=== PATIENT | male | born 1930 | race Caucasian/White ===

== ENCOUNTER 2017-08-29 17:44 | Emergency (ER) | payer MEDICARE ==
--- NOTE | 2017-08-29 18:59 | RAD ---
SACRUM AND COCCYX: 08/29/17 HISTORY: Trauma. Fall. Pain. COMPARISON: None. FINDINGS: Sacral ala appear to be preserved. No obvious fractures. There is diffuse bone demineralization. IMPRESSION: No definite fracture. POS: [facility]
== END 2017-08-29 20:57 | disposition home or self-care (01) ==
LOC: ERS 17:44
DX: K29.70 Gastritis, unspecified, without bleeding (principal); F41.9 Anxiety disorder, unspecified
CPT/HCPCS: 72220

== ENCOUNTER 2018-04-19 11:16 | Inpatient (IN) | payer MEDICARE ==
[~2018-04-19 11:16] MED LIST: Iopamidol 370 76% 100 ML VIAL ONE; Iopamidol 370 76% 50 ML VIAL FS ONE
[2018-04-19 11:41] LABS: #Basophils 0.1 thou/uL (0.0-0.2); #Eosinphils 0.1 thou/uL (0.0-0.7); #Lymphocytes 2.7 thou/uL (1.20-3.40); #Monocytes 0.7 thou/uL (0.11-0.59); #Neutrophils 3.6 thou/uL (1.40-6.50); %Basophils 0.8 % (0.0-1.0); %Lymphocytes 38.3 % (21.0-51.0); %Monocytes 9.6 % (0.0-10.0); %Neutrophils 50.3 % (42.0-75.0); Hemoglobin 12.9 g/dL (14.0-18.0); Mean Corpuscular HGB CONC 33.8 g/dL (32.0-36.0); Mean Corpuscular Hemoglobin 30.7 pg (27.0-31.0); Mean Corpuscular Volume 90.9 fL (78.0-98.0); Mean Platelet Volume 8.1 fL (7.4-10.4); Platelet Count 154 thou/uL (130-400); Red Blood Cell (RBC) Count 4.22 mill/uL (4.70-6.10); White Blood Cell (WBC) Count 7.1 thou/uL (4.8-10.8)
[2018-04-19] MEDS ORDERED: DOPamine 400 MG/D5W 250 ML 250 ML ONE (11:45)
[2018-04-19] MEDS ORDERED: Amiodarone 150 MG/3 ML VIAL ONE ×2 (11:47→11:50)
[2018-04-19 11:52] LABS: INR-International Normal Ratio 1.8; PTT 31.9 SEC (22.9-36.1); Prothrombin Time 21.3 SEC (12.0-14.7)
[2018-04-19 11:55] LABS: ALT (SGPT) 45 U/L (8-55); AST (SGOT) 62 U/L (5-34); Albumin 3.8 g/dL (3.4-4.8); Alkaline Phosphatase 92 U/L (40-150); Anion Gap 15 mmol/L (10-20); BUN (Urea Nitrogen) 19 mg/dL (8.4-25.7); Calc. Creatinine Clearance 0 mL/min (70-130); Calcium 9.3 mg/dL (7.8-10.44); Carbon Dioxide 26 mmol/L (23-31); Chloride 102 mmol/L (98-107); Estimated GFR-MDRD 56; Globulin 2.9 g/dL (2.4-3.5); Glucose 151 mg/dL (83-110); Potassium 3.6 mmol/L (3.5-5.1); Protein, Total 6.7 g/dL (5.8-8.1); Sodium 139 mmol/L (136-145)
[2018-04-19] MEDS ORDERED: Norepinephrine 4 MG/4 ML VIAL ONE (11:55)
[2018-04-19 11:59] LABS: CKMB 5.7 ng/mL (0-6.6); Troponin I Less than 0.010 ng/mL (< 0.028)
[2018-04-19] MEDS ORDERED: Heparin 10,000 UNITS/1 ML VIAL ONE (12:00)
[2018-04-19] MEDS ORDERED: Ondansetron PF 4 MG/2 ML Vial ONE (12:01)
[2018-04-19] MEDS ORDERED: Atropine Sulfate 1 mg/10 ml Syringe ONE (12:08)
[2018-04-19] MEDS ORDERED: Nitroglycerin 0.4 MG TAB (25 Tab Bottle) SL PRN (13:07)
[2018-04-19] MEDS ORDERED: Morphine 4 MG/ML VIAL SLOW IVP PRN (13:07)
[2018-04-19] MEDS ORDERED: Aggrastat 12.5 MG/250 ML 250 ML ONE (13:09)
[2018-04-19] MEDS ORDERED: Aggrastat 12.5 MG/250 ML 250 ML IVPB SCH (13:15)
[2018-04-19] MEDS ORDERED: Norepinephrine 8 MG/0.9% NS 250 ML IVPB SCH (13:15)
[2018-04-19] MEDS ORDERED: TICAGRELOR 90 MG TABLET PO SCH (13:15)
[2018-04-19] MEDS ORDERED: DOPamine 400 MG/D5W 250 ML 250 ML IVPB SCH (13:15)
[2018-04-19] MEDS ORDERED: Amiodarone In Dextrose 200 ML IVPB SCH (13:15)
--- NOTE | 2018-04-19 14:00 | HP ---
REASON FOR ADMISSION: Acute inferior ST-elevation [place]. HISTORY OF PRESENT ILLNESS: Mr. Peoples is a pleasant 88-year-old white gentleman, who comes to the hospital, brought in by EMS for a fall. At his [facility] room, he was sitting on the wheelchair and then when they came back in the room, he was on the floor, so EMS was called. He was complaining of neck pain, so a neck brace was placed. He was brought in and on the way in the ambulance, an EKG was done that showed that he was bradycardic in the 40s and had inferior ST elevations. Cardiology was called for this. I spoke with the son and they wanted to rescind the DNR for a possible heart catheterization and try to do as much as we could without being too aggressive in the sense of doing a bypass surgery. He was taken to the catheterization lab, where he was found to have an occluded RCA. He had several runs of thrombectomy and balloon angioplasty and eventually, we were able to restore flow and his complete heart block actually recovered back to normal rhythm. He is currently in sinus tach. He did have several episodes of ventricular tachycardia. The first three episodes were related to putting a temporary pacemaker on his RV. The pacer started pacing him appropriately, but he went into VT soon after, so this was eventually pulled out and his VT improved. He had already received amiodarone at that time. After we had opened up the artery, he also had two more episodes of VT, which he got defibrillated from. He tolerated the procedure well. He is on Aggrastat and on two different pressors to keep his blood pressure up. PAST MEDICAL HISTORY: 1. Chronic atrial fibrillation, however, currently in sinus rhythm. 2. Venous insufficiency. 3. History of left great toe cellulitis. 4. Depression. PAST SURGICAL HISTORY: 1. Left toe abscess incision and drainage back in 2013. 2. Colonoscopy. 3. Appendectomy. 4. Tonsillectomy. 5. Adenoidectomy. 6. Vein ablation for varicose disease and venous insufficiency. OUTPATIENT MEDICATIONS: Aspirin 325 a day. He has been on Coumadin in the past, but apparently, he has been taken off this medication as he is noncompliant. FAMILY HISTORY: No early coronary artery disease. SOCIAL HISTORY: He is demented and lives in a [facility]. No drugs. No tobacco. He have about 2 to 3 beers a day. REVIEW OF SYSTEMS: Unobtainable as the patient is confused. PHYSICAL EXAMINATION: VITAL SIGNS: Blood pressure 110/62, heart rate of 80, respiratory rate 20, and saturating 92% on non-rebreather. GENERAL: Awake, alert, and oriented to person and place only. HEENT: Normocephalic and atraumatic. NECK: Cleared by the ER. LUNGS: Clear to auscultation. CARDIOVASCULAR: S1 and S2. No S3 or S4. No murmurs. ABDOMEN: Soft. Positive bowel sounds. EXTREMITIES: No edema. SKIN: Warm and dry. LABORATORY WORK: Reviewed. CBC with a white count of 7.1, hemoglobin 12.9, hematocrit 38, blood count 154. Coags were reviewed. Chemistries were reviewed, unremarkable except for glucose of 151. BNP was 403. Troponin I was less than 0.01 and CK-MB was normal. ASSESSMENT: 1. Acute inferior ST-elevation myocardial infarction. 2. Third-degree AV block, resolved after opening up the RCA. 3. Dementia with mild altered mentation improved now once he is out of complete heart block. 4. Cardiogenic shock, currently on Levophed and dopamine, to be weaned off. PLAN: 1. Admit to ICU. 2. Continue to wean dopamine and Levophed as tolerated. 3. He will have to remain flat for the next 12 hours as there is a lot of clot burden in his coronaries. We will keep him on Aggrastat for 12 hours. We can pull the sheath about an hour after the Aggrastat has been stopped. 4. Continue amiodarone drip secondary to several episodes of VT during catheterization. We will probably stop it before discharge. 5. Lovenox for DVT prophylaxis. 6. PPI for stress ulcer prophylaxis. 7. Family has rescinded DNR for the next few days in the perioperative state. We will most likely resume DNR in the next two days. Job ID: [id number]
[2018-04-19 16:13] VITALS: BMI 31.9
[2018-04-19] MEDS ORDERED: Sodium Chloride 0.9% 1,000 ML IV SCH (17:00)
[2018-04-19] MEDS: Amiodarone HCl 450 MG in Dextrose 5% in Water 250 ML IVPB SCH (18:03)
--- NOTE | 2018-04-19 18:18 | RAD ---
AP CHEST: 04/19/18 HISTORY: Chest pain. Lungs appear clear of infiltrate. No evidence of vascular congestion. Heart and mediastinum unremarka ble. IMPRESSION: No acute process. POS: [facility]
[2018-04-19 19:48] LABS: #Lymphocytes 0.7 thou/uL (1.20-3.40); #Monocytes 0.8 thou/uL (0.11-0.59); #Neutrophils 10.3 thou/uL (1.40-6.50); %Eosinophils 0.2 % (0.0-10.0); %Lymphocytes 6.2 % (21.0-51.0); %Monocytes 6.5 % (0.0-10.0); Hemoglobin 12.4 g/dL (14.0-18.0); Mean Corpuscular HGB CONC 33.2 g/dL (32.0-36.0); Mean Corpuscular Hemoglobin 30.4 pg (27.0-31.0); Mean Corpuscular Volume 91.4 fL (78.0-98.0); Mean Platelet Volume 7.9 fL (7.4-10.4); Platelet Count 193 thou/uL (130-400); RBC Distribution Width 13.2 % (11.5-14.5); Red Blood Cell (RBC) Count 4.08 mill/uL (4.70-6.10); White Blood Cell (WBC) Count 11.8 thou/uL (4.8-10.8)
[2018-04-19] MEDS ORDERED: Haloperidol Lactate 5 MG/ML VIAL IM SCH (20:00)
[2018-04-19] MEDS: Atorvastatin Calcium 40 MG TAB PO SCH (20:11)
[2018-04-19 20:21] LABS: CKMB 278.5 ng/mL (0-6.6)
[2018-04-19] MEDS: TICAGRELOR 90 MG TABLET PO SCH (20:27)
[2018-04-19 20:42] LABS: Troponin I 151.123 ng/mL (< 0.028)
[2018-04-19] MEDS ORDERED: Lorazepam 2 MG/ML VIAL ONE (22:26)
[2018-04-20 02:02] LABS: #Lymphocytes 1.1 thou/uL (1.20-3.40); #Monocytes 0.9 thou/uL (0.11-0.59); #Neutrophils 7.9 thou/uL (1.40-6.50); %Basophils 0.2 % (0.0-1.0); %Eosinophils 0.1 % (0.0-10.0); %Lymphocytes 11.1 % (21.0-51.0); %Monocytes 9.2 % (0.0-10.0); %Neutrophils 79.3 % (42.0-75.0); Hemoglobin 11.6 g/dL (14.0-18.0); Mean Corpuscular HGB CONC 32.6 g/dL (32.0-36.0); Mean Corpuscular Hemoglobin 29.7 pg (27.0-31.0); Mean Corpuscular Volume 90.9 fL (78.0-98.0); Mean Platelet Volume 8.3 fL (7.4-10.4); Platelet Count 167 thou/uL (130-400); RBC Distribution Width 13.2 % (11.5-14.5); Red Blood Cell (RBC) Count 3.92 mill/uL (4.70-6.10); White Blood Cell (WBC) Count 9.9 thou/uL (4.8-10.8)
[2018-04-20 04:47] LABS: ALT (SGPT) 106 U/L (8-55); AST (SGOT) 286 U/L (5-34); Albumin 3.3 g/dL (3.4-4.8); Alkaline Phosphatase 76 U/L (40-150); Anion Gap 11 mmol/L (10-20); BUN (Urea Nitrogen) 22 mg/dL (8.4-25.7); Bilirubin, Total 0.4 mg/dL (0.2-1.2); Calc. Creatinine Clearance 49 mL/min (70-130); Calcium 8.1 mg/dL (7.8-10.44); Carbon Dioxide 25 mmol/L (23-31); Chloride 106 mmol/L (98-107); Estimated GFR-MDRD 48; Globulin 2.5 g/dL (2.4-3.5); Glucose 117 mg/dL (83-110); Potassium 4.3 mmol/L (3.5-5.1); Protein, Total 5.8 g/dL (5.8-8.1); Sodium 138 mmol/L (136-145)
[2018-04-20 04:53] LABS: CKMB 183.5 ng/mL (0-6.6); Critical Call CKMB RESULT DECREASING
[2018-04-20 05:13] LABS: Critical Call Chem Troponin I RESULT DECREASING; Troponin I 114.135 ng/mL (< 0.028)
[2018-04-20 07:39] LABS: #Lymphocytes 1.5 thou/uL (1.20-3.40); #Monocytes 1.1 thou/uL (0.11-0.59); %Basophils 0.3 % (0.0-1.0); %Eosinophils 0.2 % (0.0-10.0); %Lymphocytes 15.9 % (21.0-51.0); %Monocytes 11.2 % (0.0-10.0); %Neutrophils 72.4 % (42.0-75.0); Hemoglobin 11.1 g/dL (14.0-18.0); Mean Corpuscular HGB CONC 32.2 g/dL (32.0-36.0); Mean Corpuscular Hemoglobin 29.5 pg (27.0-31.0); Mean Corpuscular Volume 91.7 fL (78.0-98.0); Mean Platelet Volume 8.5 fL (7.4-10.4); Platelet Count 152 thou/uL (130-400); RBC Distribution Width 13.2 % (11.5-14.5); Red Blood Cell (RBC) Count 3.76 mill/uL (4.70-6.10); White Blood Cell (WBC) Count 9.7 thou/uL (4.8-10.8)
[2018-04-20] MEDS ORDERED: Prevnar 13-Val Conj/PF 0.5 ML SYRINGE IM ONE (09:00)
[2018-04-20] MEDS ORDERED: Aspirin 325 mg Enteric Coated Tablet PO SCH (09:00)
[2018-04-20] MEDS: Amiodarone HCl 450 MG in Dextrose 5% in Water 250 ML IVPB SCH (09:12)
[2018-04-20] MEDS: Enoxaparin Sodium 40 MG/0.4 ML SYRINGE SC SCH (10:44)
[2018-04-20] MEDS: Aspirin 81 mg Enteric Coated Tablet PO SCH (10:45)
[2018-04-20] MEDS: TICAGRELOR 90 MG TABLET PO SCH ×2 (11:30→22:33)
[2018-04-20 12:15] LABS: #Lymphocytes 1.5 thou/uL (1.20-3.40); #Neutrophils 6.9 thou/uL (1.40-6.50); %Basophils 0.4 % (0.0-1.0); %Eosinophils 0.2 % (0.0-10.0); %Lymphocytes 15.4 % (21.0-51.0); %Monocytes 10.6 % (0.0-10.0); %Neutrophils 73.3 % (42.0-75.0); Hemoglobin 11.5 g/dL (14.0-18.0); Mean Corpuscular HGB CONC 33.5 g/dL (32.0-36.0); Mean Corpuscular Hemoglobin 30.8 pg (27.0-31.0); Mean Corpuscular Volume 92.1 fL (78.0-98.0); Mean Platelet Volume 8.2 fL (7.4-10.4); Platelet Count 142 thou/uL (130-400); RBC Distribution Width 13.4 % (11.5-14.5); Red Blood Cell (RBC) Count 3.73 mill/uL (4.70-6.10); White Blood Cell (WBC) Count 9.5 thou/uL (4.8-10.8)
--- NOTE | 2018-04-20 13:52 | EKG ---
Test Reason : Blood Pressure : / mmHG Vent. Rate : 041 BPM Atrial Rate : 043 BPM P-R Int : 000 ms QRS Dur : 112 ms QT Int : 558 ms P-R-T Axes : 091 -36 094 degrees QTc Int : 460 ms Marked sinus bradycardia with A-V dissociation and Junctional bradycardia with Sinus/atrial capture Left axis deviation Low voltage QRS Incomplete right bundle branch block Inferior infarct , possibly acute Anterior injury pattern * ACUTE [place] * Consider right ventricular involvement in acute inferior infarct Abnormal ECG Confirmed by NASRIN LEE, SACHA ([id number]), editor greeting card TORIE STARK ([id number]) on 04/20/2018 1:52:01 PM Referred By: Confirmed By:SACHA ALEXANDRA MD
[2018-04-20] MEDS ORDERED: Amiodarone 200 MG TAB PO SCH (21:00)
--- NOTE | 2018-04-20 21:00 | CON ---
DATE OF CONSULTATION: HISTORY OF PRESENT ILLNESS: Mr. Peoples is a very pleasant 88-year-old male. He presented to the hospital yesterday afternoon with complaints of chest discomfort. He was found to have ST elevation on his EKG. He was also noted to be bradycardic. He was also noted to have several episodes of ventricular tachycardia. He went to the brine room laborer, found to have an occluded RCA. He had thrombectomy and balloon angioplasty and eventually, once this was done, his complete heart block recovered. He did have ventricular tachycardia while trying to place a temporary pacemaker. Ventricular tachycardia resolved with removal of the pacemaker wire. He got defibrillated twice on the brine room laborer. He was actually evaluated and had no complaints when I saw him today in the ICU. PAST MEDICAL HISTORY: Remarkable for, 1. Atrial fibrillation. 2. History of toe cellulitis. 3. History of incision and drainage of his toe in 2013. 4. History of an appendectomy and a tonsillectomy. 5. History of a vein ablation in the past. MEDICATIONS: He is on only aspirin when he came in. FAMILY HISTORY: Negative for early coronary or lung disease. SOCIAL HISTORY: He has dementia. Lives in a custodial. He is a nonsmoker and nondrinker. REVIEW OF SYSTEMS: Not actively obtainable. PHYSICAL EXAMINATION: GENERAL: This is a very pleasant gentleman. VITAL SIGNS: He is afebrile. Heart rates in the 60s, respiratory rate is 18, oximetry is 97 on room air surprisingly, blood pressure 118/80. HEENT: Sclerae are anicteric. Extraocular movements are full. NECK: Supple. LUNGS: Clear. HEART: Regular rhythm. He has grade 2/6 systolic murmur. ABDOMEN: Soft and nontender. EXTREMITIES: Without clubbing, cyanosis, or edema. LABORATORY DATA: White count 9.5, hemoglobin 11.5, platelets 142,000. Electrolytes are normal. Creatinine is 1.39. AST is 286, ALT 106. Troponin got up to 114. IMPRESSION AND PLAN: 1. Myocardial infarction, status post percutaneous intervention. 2. Status post complete heart block and multiple episodes of ventricular tachycardia, resolved. Overall, he looks amazingly well for what he went through yesterday and his age of 88. His do not resuscitate was rescinded. This probably should be put back in place now that he has completed his cardiac catheterization procedure. TIME SPENT: 70-minute consult, 50% of the time spent on the unit coordinating care. Job ID: [id number]
[2018-04-20] MEDS: Atorvastatin Calcium 40 MG TAB PO SCH (22:34)
[2018-04-21] MEDS ORDERED: Guaifenesin DM 100-10/5 ML UDCUP PO PRN (00:41)
[2018-04-21 05:29] LABS: #Monocytes 0.7 thou/uL (0.11-0.59); #Neutrophils 5.3 thou/uL (1.40-6.50); %Basophils 0.2 % (0.0-1.0); %Eosinophils 0.5 % (0.0-10.0); %Lymphocytes 13.9 % (21.0-51.0); %Neutrophils 75.3 % (42.0-75.0); Hemoglobin 10.6 g/dL (14.0-18.0); Mean Corpuscular HGB CONC 33.6 g/dL (32.0-36.0); Mean Corpuscular Hemoglobin 30.8 pg (27.0-31.0); Mean Corpuscular Volume 91.5 fL (78.0-98.0); Mean Platelet Volume 8.7 fL (7.4-10.4); Platelet Count 122 thou/uL (130-400); RBC Distribution Width 13.3 % (11.5-14.5); Red Blood Cell (RBC) Count 3.45 mill/uL (4.70-6.10)
[2018-04-21 05:30] LABS: Prothrombin Time 22.4 SEC (12.0-14.7)
[2018-04-21 05:42] LABS: Anion Gap 11 mmol/L (10-20); BUN (Urea Nitrogen) 18 mg/dL (8.4-25.7); Calc. Creatinine Clearance 53 mL/min (70-130); Calcium 8.4 mg/dL (7.8-10.44); Carbon Dioxide 26 mmol/L (23-31); Chloride 106 mmol/L (98-107); Estimated GFR-MDRD 77; Glucose 99 mg/dL (83-110); Potassium 4.3 mmol/L (3.5-5.1); Sodium 139 mmol/L (136-145)
[2018-04-21 05:46] LABS: ALT (SGPT) 96 U/L (8-55); AST (SGOT) 266 U/L (5-34); Albumin 3.3 g/dL (3.4-4.8); Alkaline Phosphatase 68 U/L (40-150); Bilirubin, Direct 0.4 mg/dL (0.1-0.3); Bilirubin, Total 0.8 mg/dL (0.2-1.2); CKMB 50.2 ng/mL (0-6.6); Critical Call CKMB RESULT DECREASING; Protein, Total 5.5 g/dL (5.8-8.1)
[2018-04-21 06:04] LABS: Critical Call Chem Troponin I RESULT DECREASING
[2018-04-21] MEDS ORDERED: Amiodarone In Dextrose 200 ML IVPB SCH (08:30)
[2018-04-21] MEDS ORDERED: Atorvastatin Calcium 40 MG TAB PO SCH (08:32)
[2018-04-21] MEDS ORDERED: Amiodarone 150 MG in Dextrose 5% in Water 100 ML IVPB SCH (09:00)
[2018-04-21] MEDS: TICAGRELOR 90 MG TABLET PO SCH ×2 (09:31→20:00)
[2018-04-21] MEDS: Enoxaparin Sodium 40 MG/0.4 ML SYRINGE SC SCH (09:31)
[2018-04-21] MEDS: Aspirin 81 mg Enteric Coated Tablet PO SCH (09:31)
[2018-04-21] MEDS: Amiodarone HCl 450 MG in Dextrose 5% in Water 250 ML IVPB SCH ×2 (10:15→20:04)
[2018-04-21] MEDS: ALPRAZolam 0.25 MG TAB PO PRN ×2 (12:39→20:00)
--- NOTE | 2018-04-21 14:22 | PRG ---
DATE OF SERVICE: 04/21/2018 SUBJECTIVE: Mr. Peoples is oriented x3, but has no recollection of the details of his admission. He did not recall that he had required cardioversion. Intermittently, he gets quite anxious and tachypneic, but with consoling and hand holding, he calms down, so Xanax has been prescribed. OBJECTIVE: VITAL SIGNS: He is afebrile, heart rate is 88, respiratory rate is 20, oximetry is 98% on room air, and blood pressure is 133/71. LUNGS: Clear. HEART: Regular rhythm. ABDOMEN: Soft. DIAGNOSTIC IMPRESSION: Echocardiogram shows an ejection fraction of 30% to 40% and a dilated right ventricle suggestive of right ventricular infarction. The left ventricle surprisingly was normal diastolic dysfunction. IMPRESSION: 1. Right ventricular infarct. 2. Status post multiple episodes of cardioversion for ventricular tachycardia. 3. Status post complete heart block. 4. Status post placement of a stent. He is clinically stable with no respiratory issues at this time. Xanax will be prescribed for his anxiety. Job ID: [id number]
[2018-04-21] MEDS: Atorvastatin Calcium 20 MG TAB PO SCH (20:00)
[2018-04-22 06:20] LABS: #Eosinphils 0.1 thou/uL (0.0-0.7); #Monocytes 0.6 thou/uL (0.11-0.59); #Neutrophils 3.6 thou/uL (1.40-6.50); %Basophils 0.3 % (0.0-1.0); %Eosinophils 1.4 % (0.0-10.0); %Lymphocytes 18.4 % (21.0-51.0); %Monocytes 11.7 % (0.0-10.0); %Neutrophils 68.3 % (42.0-75.0); Hemoglobin 10.8 g/dL (14.0-18.0); Mean Corpuscular HGB CONC 33.5 g/dL (32.0-36.0); Mean Corpuscular Hemoglobin 30.7 pg (27.0-31.0); Mean Corpuscular Volume 91.5 fL (78.0-98.0); Mean Platelet Volume 8.7 fL (7.4-10.4); Platelet Count 125 thou/uL (130-400); RBC Distribution Width 13.1 % (11.5-14.5); Red Blood Cell (RBC) Count 3.51 mill/uL (4.70-6.10); White Blood Cell (WBC) Count 5.3 thou/uL (4.8-10.8)
[2018-04-22 06:38] LABS: Anion Gap 11 mmol/L (10-20); BUN (Urea Nitrogen) 12 mg/dL (8.4-25.7); Calc. Creatinine Clearance 53 mL/min (70-130); Calcium 8.4 mg/dL (7.8-10.44); Carbon Dioxide 26 mmol/L (23-31); Chloride 105 mmol/L (98-107); Estimated GFR-MDRD 83; Glucose 92 mg/dL (83-110); Potassium 3.6 mmol/L (3.5-5.1); Sodium 138 mmol/L (136-145)
[2018-04-22 06:42] LABS: ALT (SGPT) 83 U/L (8-55); AST (SGOT) 187 U/L (5-34); Albumin 3.2 g/dL (3.4-4.8); Alkaline Phosphatase 72 U/L (40-150); Bilirubin, Direct 0.4 mg/dL (0.1-0.3); Bilirubin, Total 0.9 mg/dL (0.2-1.2); Protein, Total 5.6 g/dL (5.8-8.1)
[2018-04-22] MEDS: TICAGRELOR 90 MG TABLET PO SCH ×2 (09:04→21:09)
[2018-04-22] MEDS: Aspirin 81 mg Enteric Coated Tablet PO SCH (09:04)
[2018-04-22] MEDS: Enoxaparin Sodium 40 MG/0.4 ML SYRINGE SC SCH (11:50)
--- NOTE | 2018-04-22 12:24 | PRG ---
DATE OF SERVICE: 04/22/2018 SUBJECTIVE: Mr. Peoples is doing well. He is in no distress. He has a sitter sitting with him. Apparently, he has been intermittently getting confused. OBJECTIVE: VITAL SIGNS: He is afebrile, heart rate is 83, respiratory rate is 19, oximetry is 99% on room air, and blood pressure 116/69. LUNGS: Clear. HEART: Regular rhythm. ABDOMEN: Soft. LABORATORY DATA: White count 5.3, hemoglobin 10.8, and platelets 125,000. Electrolytes are surprisingly normal. IMPRESSION: Status post emergent cardiac catheterization for an ST-elevation myocardial infarction with stenting, right ventricular infarct, multiple episodes of ventricular tachycardia, as well as complete heart block. He is clinically stable. He has some anxiety, for which we have prescribed the low dose of Xanax. We will sign off. Job ID: [id number]
[2018-04-22] MEDS: ALPRAZolam 0.25 MG TAB PO PRN (15:15)
--- NOTE | 2018-04-22 17:57 | PDOC.CTH ---
Cardiology Progress Note - Subjective No chest pain, tightness, pressure, SOB. oriented to person and place only but this is apparently his baseline. - Objective Vital Signs Temp Pulse Pulse Pulse Resp BP BP 04/22/18 15:20 98.3 F 100 17 04/22/18 11:00 97.8 F 91 17 04/22/18 10:49 93 91 106/61 126/89 04/22/18 08:45 97.7 F 83 19 BP Pulse Ox Pulse Ox 04/22/18 15:20 135/89 100 04/22/18 11:00 124/89 98 04/22/18 10:49 97 04/22/18 08:45 116/69 99 Weight 141 lb 3 oz 04/21/18 04/22/18 04/23/18 06:59 06:59 06:59 Intake Total 481 539 Output Total 725 650 Balance -244 -111 - Physical Examination General/Neuro: NAD Neck: no JVD present Lungs: CTA, unlabored respirations Heart: other: (Irregular) Abdomen: NT/ND Extremities: other: (no edema) - Telemetry Telemetry Rhythm: Afib HR 70's. - Labs Result Diagrams: 04/22/18 05:34 04/22/18 05:34 Troponin/CKMB CK-MB (CK-2) 50.2 ng/mL (0-6.6) H* 04/21/18 04:49 Troponin I 51.310 ng/mL (< 0.028) H* 04/21/18 04:49 - Assessment/Plan 1. Inferior STEMI 2. Chronic afib 3. Subtherapeutic INR 4. Dementia 5. Deconditioning. PLAN: - Await PT/OT recommendations as far as placement. - Will resume DNR/DNI once discharged. - Will switch Brilinta to Plavix as he will need to be on coumadin as well. - Aspirin 81 mg daily. - Will start low dose BB.
[2018-04-22] MEDS ORDERED: WARFARIN PO PRN (18:01)
[2018-04-22] MEDS ORDERED: Warfarin Sodium 5 MG TAB PO SCH (18:15)
[2018-04-22] MEDS: Atorvastatin Calcium 20 MG TAB PO SCH (21:09)
[2018-04-22 22:17] LABS: Hemoglobin 11.8 g/dL (14.0-18.0); Platelet Count 151 thou/uL (130-400)
[2018-04-22 22:21] LABS: INR-International Normal Ratio 1.3; Prothrombin Time 16.2 SEC (12.0-14.7)
[2018-04-22 22:22] LABS: PTT 32.6 SEC (22.9-36.1)
[2018-04-23 06:20] LABS: #Eosinphils 0.1 thou/uL (0.0-0.7); #Lymphocytes 1.1 thou/uL (1.20-3.40); #Monocytes 0.7 thou/uL (0.11-0.59); %Basophils 0.4 % (0.0-1.0); %Eosinophils 1.8 % (0.0-10.0); %Lymphocytes 18.5 % (21.0-51.0); %Monocytes 12.3 % (0.0-10.0); Hemoglobin 10.9 g/dL (14.0-18.0); Mean Corpuscular Hemoglobin 31.2 pg (27.0-31.0); Mean Corpuscular Volume 91.6 fL (78.0-98.0); Mean Platelet Volume 8.5 fL (7.4-10.4); Platelet Count 142 thou/uL (130-400); RBC Distribution Width 13.2 % (11.5-14.5); White Blood Cell (WBC) Count 5.9 thou/uL (4.8-10.8)
[2018-04-23 06:44] LABS: Anion Gap 12 mmol/L (10-20); BUN (Urea Nitrogen) 11 mg/dL (8.4-25.7); Calc. Creatinine Clearance 55 mL/min (70-130); Calcium 8.4 mg/dL (7.8-10.44); Carbon Dioxide 26 mmol/L (23-31); Chloride 106 mmol/L (98-107); Estimated GFR-MDRD 85; Glucose 93 mg/dL (83-110); Potassium 3.6 mmol/L (3.5-5.1); Sodium 140 mmol/L (136-145)
[2018-04-23] MEDS: ALPRAZolam 0.25 MG TAB PO PRN ×2 (07:53→16:30)
[2018-04-23] MEDS: Aspirin 81 mg Enteric Coated Tablet PO SCH (07:53)
[2018-04-23] MEDS: Clopidogrel Bisulfate 75 MG TAB PO SCH (07:54)
[2018-04-23] MEDS: Enoxaparin Sodium 40 MG/0.4 ML SYRINGE SC SCH (07:54)
[2018-04-23] MEDS: Warfarin Sodium 5 MG TAB PO SCH (16:30)
--- NOTE | 2018-04-23 17:45 | PDOC.CTH ---
Cardiology Progress Note - Subjective No new issues. He is refusing to have an IV placed. Will have to keep femoral central catheter for now. No anginal symptoms. - Objective Vital Signs Temp Pulse Resp BP Pulse Ox 04/23/18 15:22 96 F L 80 14 127/79 97 04/23/18 11:05 98 F 76 16 104/65 97 04/23/18 08:00 98 04/23/18 07:14 98.3 F 74 16 95/60 98 Weight 141 lb 2 oz 04/22/18 04/23/18 04/24/18 06:59 06:59 06:59 Intake Total 539 120 600 Output Total 650 700 350 Balance -111 -580 250 - Physical Examination General/Neuro: NAD Neck: no JVD present Lungs: CTA, unlabored respirations Heart: other: (Irregular) Abdomen: NT/ND Extremities: other: (no edema) - Telemetry Telemetry Rhythm: Afib HR 80's. - Labs Result Diagrams: 04/23/18 05:24 04/23/18 05:24 Troponin/CKMB CK-MB (CK-2) 50.2 ng/mL (0-6.6) H* 04/21/18 04:49 Troponin I 51.310 ng/mL (< 0.028) H* 04/21/18 04:49 - Assessment/Plan 1. Inferior STEMI 2. Chronic afib 3. Subtherapeutic INR 4. Dementia 5. Deconditioning. PLAN: - Rehab screening today. - Will resume DNR/DNI once discharged. - On Plavix and aspirin 81 mg daily. - Tolerating low dose BB. - Will discharge once placement secured.
[2018-04-23] MEDS: Atorvastatin Calcium 20 MG TAB PO SCH (20:51)
[2018-04-23 21:36] LABS: INR-International Normal Ratio 1.2; Prothrombin Time 15.5 SEC (12.0-14.7)
[2018-04-24] MEDS: ALPRAZolam 0.25 MG TAB PO PRN ×3 (00:44→21:00)
[2018-04-24 06:33] LABS: #Eosinphils 0.1 thou/uL (0.0-0.7); #Lymphocytes 1.4 thou/uL (1.20-3.40); #Monocytes 0.7 thou/uL (0.11-0.59); #Neutrophils 3.7 thou/uL (1.40-6.50); %Basophils 0.1 % (0.0-1.0); %Lymphocytes 23.5 % (21.0-51.0); %Monocytes 12.2 % (0.0-10.0); %Neutrophils 62.2 % (42.0-75.0); Hemoglobin 10.9 g/dL (14.0-18.0); Mean Corpuscular HGB CONC 33.3 g/dL (32.0-36.0); Mean Corpuscular Hemoglobin 30.6 pg (27.0-31.0); Mean Corpuscular Volume 91.9 fL (78.0-98.0); Mean Platelet Volume 8.5 fL (7.4-10.4); Platelet Count 143 thou/uL (130-400); RBC Distribution Width 13.5 % (11.5-14.5); Red Blood Cell (RBC) Count 3.56 mill/uL (4.70-6.10)
[2018-04-24 06:51] LABS: Anion Gap 12 mmol/L (10-20); BUN (Urea Nitrogen) 13 mg/dL (8.4-25.7); Calc. Creatinine Clearance 60 mL/min (70-130); Calcium 8.4 mg/dL (7.8-10.44); Carbon Dioxide 25 mmol/L (23-31); Chloride 106 mmol/L (98-107); Estimated GFR-MDRD Greater than 90; Glucose 94 mg/dL (83-110); Potassium 3.6 mmol/L (3.5-5.1); Sodium 139 mmol/L (136-145)
[2018-04-24] MEDS: Enoxaparin Sodium 40 MG/0.4 ML SYRINGE SC SCH (08:15)
[2018-04-24] MEDS: Aspirin 81 mg Enteric Coated Tablet PO SCH (08:17)
[2018-04-24] MEDS: Clopidogrel Bisulfate 75 MG TAB PO SCH (08:18)
[2018-04-24 15:04] LABS: INR-International Normal Ratio 1.3; Prothrombin Time 16.2 SEC (12.0-14.7)
[2018-04-24] MEDS: Warfarin Sodium 5 MG TAB PO SCH (16:17)
--- NOTE | 2018-04-24 17:35 | PRG ---
DATE OF SERVICE: 04/24/2018 SUBJECTIVE: Mr. Peoples still requires a sitter. OBJECTIVE: VITAL SIGNS: He is afebrile, heart rate 76, respiratory rate 16, oximetry is 99 on room air, blood pressure is 130/81. LUNGS: Clear. HEART: Regular rhythm. Still in atrial fibrillation by monitor. IMPRESSION: 1. Status post inferior wall myocardial infarction with right ventricular extension. 2. Chronic atrial fibrillation. 3. Dementia, which continues to be an issue. He is not very cooperative with physical and occupational therapy. in the room today and cannot really understand the directions to do what he needs to do. I am not optimistic that any type of attempted rehab will be successful, and placement back in is the only viable option in my opinion. Job ID: [id number]
[2018-04-24] MEDS: Atorvastatin Calcium 20 MG TAB PO SCH (21:00)
--- NOTE | 2018-04-24 21:03 | PDOC.CTH ---
Cardiology Progress Note - Subjective No new issues. Remains confused but pleasant. Reruisng all IVs, refusing SQ lovenox. - Objective Vital Signs Temp Pulse Pulse Pulse Resp BP BP 04/24/18 19:30 97.7 F 77 16 04/24/18 16:21 96 73 124/83 130/83 04/24/18 15:49 97.5 F L 76 16 04/24/18 11:07 97.6 F 79 16 BP Pulse Ox 04/24/18 19:30 117/70 97 04/24/18 16:21 04/24/18 15:49 130/81 99 04/24/18 11:07 132/75 98 Weight 140 lb 5 oz 04/23/18 04/24/18 04/25/18 06:59 06:59 06:59 Intake Total 120 840 480 Output Total 700 750 350 Balance -580 90 130 - Physical Examination General/Neuro: NAD Neck: no JVD present Lungs: CTA, unlabored respirations Heart: other: (Irregluar) Abdomen: NT/ND Extremities: other: (no edema) - Telemetry Telemetry Rhythm: Afib HR 70's. - Labs Result Diagrams: 04/24/18 05:33 04/24/18 05:33 Troponin/CKMB CK-MB (CK-2) 50.2 ng/mL (0-6.6) H* 04/21/18 04:49 Troponin I 51.310 ng/mL (< 0.028) H* 04/21/18 04:49 - Assessment/Plan 1. Inferior STEMI 2. Chronic afib 3. Subtherapeutic INR 4. Dementia 5. Deconditioning. PLAN: - Rehab screening done and accepted. - Will resume DNR/DNI once discharged. - On Plavix and aspirin 81 mg daily. - Tolerating low dose BB. - D/c to Rehab in the morning
[2018-04-24 21:36] LABS: Hemoglobin 11.7 g/dL (14.0-18.0); Platelet Count 165 thou/uL (130-400)
[2018-04-25 05:46] LABS: #Eosinphils 0.1 thou/uL (0.0-0.7); #Lymphocytes 1.4 thou/uL (1.20-3.40); #Monocytes 0.7 thou/uL (0.11-0.59); #Neutrophils 3.7 thou/uL (1.40-6.50); %Basophils 0.3 % (0.0-1.0); %Eosinophils 2.2 % (0.0-10.0); %Monocytes 12.2 % (0.0-10.0); %Neutrophils 62.4 % (42.0-75.0); Hemoglobin 11.3 g/dL (14.0-18.0); Mean Corpuscular HGB CONC 33.3 g/dL (32.0-36.0); Mean Corpuscular Hemoglobin 30.8 pg (27.0-31.0); Mean Corpuscular Volume 92.4 fL (78.0-98.0); Platelet Count 153 thou/uL (130-400); Red Blood Cell (RBC) Count 3.66 mill/uL (4.70-6.10); White Blood Cell (WBC) Count 5.9 thou/uL (4.8-10.8)
[2018-04-25 05:52] LABS: INR-International Normal Ratio 1.3; Prothrombin Time 16.6 SEC (12.0-14.7)
[2018-04-25 06:07] LABS: Anion Gap 12 mmol/L (10-20); BUN (Urea Nitrogen) 13 mg/dL (8.4-25.7); Calc. Creatinine Clearance 60 mL/min (70-130); Calcium 8.5 mg/dL (7.8-10.44); Carbon Dioxide 28 mmol/L (23-31); Chloride 105 mmol/L (98-107); Estimated GFR-MDRD Greater than 90; Glucose 95 mg/dL (83-110); Potassium 3.8 mmol/L (3.5-5.1); Sodium 141 mmol/L (136-145)
[2018-04-25] MEDS ORDERED: Warfarin Sodium 2.5 MG TAB PO SCH (08:00)
[2018-04-25] MEDS: Enoxaparin Sodium 40 MG/0.4 ML SYRINGE SC SCH (08:05)
[2018-04-25] MEDS: Clopidogrel Bisulfate 75 MG TAB PO SCH (08:05)
[2018-04-25] MEDS: Aspirin 81 mg Enteric Coated Tablet PO SCH (08:05)
[2018-04-25] MEDS: ALPRAZolam 0.25 MG TAB PO PRN (08:55)
[2018-04-25] MEDS ORDERED: predniSONE 20 MG TAB PO SCH (09:30)
[2018-04-25] MEDS ORDERED: Azithromycin 250 MG TAB PO SCH ×2 (09:45→10:45)
[2018-04-25 11:25] VITALS: BP 129/70; TEMP 97.2
--- NOTE | 2018-04-25 12:07 | DIS ---
DATE OF ADMISSION: 04/19/2018 DATE OF DISCHARGE: 04/25/2018 PRIMARY DIAGNOSES: 1. Inferior ST-elevation myocardial infarction. 2. Dementia. 3. Moderate LV dysfunction. SUMMARY: Mr. Peoples is an 88-year-old white gentleman, who comes to the hospital for chest pain. He was diagnosed with an inferior ST-elevation [place] and taken emergently to the catheterization lab, where he was found to have an occluded RCA. Manual thrombectomy took the clot out and we were able to stent the RCA with a bare-metal stent. He did well postoperatively. He did have to get shocked about 8 times during his procedure for VT. He was also bradycardic with complete heart block, which all resolved once we opened up his artery. He did well postoperatively and his EF was about 35% to 40%. He will be discharged to a SNF at [place]. DISCHARGE MEDICATIONS: Reviewed. Only changes are; 1. Plavix 75 mg a day on top of his Coumadin. This is for 1 month and no aspirin for the rest of the month and then switch over Plavix to aspirin in 1 month. 2. Sublingual nitroglycerin. 3. Atorvastatin 10 mg a day. 4. DuoNeb. 5. Zithromax. 6. Prednisone 40 a day for 5 days and Zithromax for 5 days as well. No TORITO inhibitor, given borderline low blood pressure. He is stable for discharge. He is not hypoxic. His breathing pattern is stable. He is breathing about 18 times a minute, but he is developing a cough, so we will give him a small course of steroids with antibiotics and nebulizations at the half-way facility. I spoke with the son about all this. He agrees. We will send him out to the half-way home and will follow up in 1 month. Job ID: [id number]
[2018-04-25] MEDS ORDERED: Warfarin Sodium 7.5 MG TAB PO SCH (17:00)
[2018-04-26] MEDS ORDERED: predniSONE 20 MG TAB PO SCH (08:00)
[2018-04-26] MEDS ORDERED: Azithromycin 250 MG TAB PO SCH (09:00)
== END 2018-04-25 13:47 | DRG 248 ==
LOC: ERS 11:16 → CCL 11:35 → CCU 13:07 → 2NO 04-20 16:47
PROVIDERS: ADMIT Internal Medicine Cardiovascular Disease; ATTEND Internal Medicine Cardiovascular Disease
PROC: 02703EZ Dilation of Coronary Artery, One Artery with Two Intraluminal Devices, Percutaneous Approach (ICD-10-PCS; principal; 2018-04-19)
PROC: 02C03ZZ Extirpation of Matter from Coronary Artery, One Artery, Percutaneous Approach (ICD-10-PCS; 2018-04-19)
PROC: 4A023N7 Measurement of Cardiac Sampling and Pressure, Left Heart, Percutaneous Approach (ICD-10-PCS; 2018-04-19)
PROC: B2111ZZ Fluoroscopy of Multiple Coronary Arteries using Low Osmolar Contrast (ICD-10-PCS; 2018-04-19)
PROC: B2151ZZ Fluoroscopy of Left Heart using Low Osmolar Contrast (ICD-10-PCS; 2018-04-19)
PROC: 5A2204Z Restoration of Cardiac Rhythm, Single (ICD-10-PCS; 2018-04-19)
DX: I21.19 ST elevation (STEMI) myocardial infarction involving other coronary artery of inferior wall (principal); R57.0 Cardiogenic shock; I44.2 Atrioventricular block, complete; I47.2 Ventricular tachycardia; I48.2 Chronic atrial fibrillation; F03.90 Unspecified dementia, unspecified severity, without behavioral disturbance, psychotic disturbance, mood disturbance, and anxiety; Z79.82 Long term (current) use of aspirin; Z79.01 Long term (current) use of anticoagulants; Z79.899 Other long term (current) drug therapy
CPT/HCPCS: 33210; 36415; 71045; 80048; 80053; 80076; 82553; 83735; 83880; 84443; 84484; 85025; 85347; 85610; 85730; 86850; 86900; 86901; 92941; 92973; 92977; 93005; 93010; 93306; 93458; 94640; C1725; C1751; C1757; C1769; C1876; C1887; G8978-GP-CM; G8979-GP-CK; G8987-GO-CL; G8988-GO-CJ; J0282; J0461; J1265; J1630; J1644; J1650; J2060; J2405; J3246; J7070; J7506